=== PATIENT | male | born 1970 | race American Indian/Alaskan Native ===

== ENCOUNTER 2018-10-17 10:52 | Emergency (ER) | payer OTHER ==
[2018-10-17] MEDS ORDERED: AMIDATE IV ONE (11:05)
[2018-10-17] MEDS ORDERED: ZEMURON IV ONE (11:05)
[2018-10-17] MEDS ORDERED: VERSED IV ONE (11:05)
[2018-10-17] MEDS ORDERED: ATIVAN IV PRN (11:16)
[2018-10-17 11:31] LABS: Mean Corpuscular HGB Conc 30 % (32-34); Mean Corpuscular Volume 89 fl (84-94); Platelet Count 262 K/mm3 (140-440); Red Cell Distribution Width 16.2 % (13.2-15.2)
[2018-10-17 11:32] LABS: Hematocrit 51.8 % (35.5-45.6); Hemoglobin 15.5 gm/dl (11.8-15.2)
[2018-10-17 11:35] LABS: INR 1.07 (0.87-1.13); Partial Thromboplastin Time 33.4 Sec. (24.2-36.6)
--- NOTE | 2018-10-17 11:58 | Progress Note ---
Subjective Date of service: 10/17/18 Interval history: please see my dictated note about stroke alert and conversation with Dr. Curiel... details on the prior brain bleed will be helpful new onst of seizures may be most significant problem Objective - Laboratory Findings CBC and BMP: 10/17/18 11:00 Abnormal Lab Findings: Abnormal Labs 10/17/18 10/17/18 11:00 11:03 WBC 12.2 H RBC 5.80 H Hgb 15.5 H Hct 51.8 H MCH 27 L MCHC 30 L RDW 16.2 H POC Glucose 201 H
[2018-10-17] MEDS ORDERED: CARDENE 50 MG in NACL 0.9% 250ML 230 ML IV SCH ×2 (12:00→13:00)
[2018-10-17] MEDS ORDERED: ATIVAN 100 MG in NACL 0.9% 50 ML, VIAFLEX EMPTY CONTAINER 0 ML IV SCH (12:00)
--- NOTE | 2018-10-17 12:09 | Cat Scan Report ---
PROCEDURE: CT HEAD/BRAIN WO CON TECHNIQUE: Multiple contiguous axial images were obtained from the skull base to the vertex without administration of IV contrast. HISTORY: neuro deficits <6hrs or sx present upon awakening COMPARISONS: CT of the head performed on 06/05/2008 FINDINGS: 4.1 x 2.3 cm hemorrhage within the right temporal lobe with surrounding edema. No significant midline shift. The ventricles remain midline. The subarachnoid spaces and basilar cisterns are clear. Normal brain volume for the patient's age. No skull fracture. The paranasal sinuses and mastoid air cells a re clear. IMPRESSION: 4.1 x 2.3 cm parenchymal hemorrhage within the right temporal lobe with surrounding edema. Findings were discussed with Dr. Curiel at 12:03 PM, Eastern standard time, on 10/17/2018. This document is electronically signed by Natalya Davila MD., October 17 2018 12:06:48 PM ET
[2018-10-17 12:12] LABS: Platelet Estimate Consistent w Auto; RBC Morphology Normal; Total Cells Counted 100
[2018-10-17] MEDS ORDERED: KEPPRA PO ONE (12:25)
[2018-10-17] MEDS ORDERED: KEPPRA 1,000 MG/NS 0.75% 100ML 1,000 MG/100 ML BAG IV ONE ×2 (12:28→12:29)
--- NOTE | 2018-10-17 12:30 | XRay Report ---
PROCEDURE: XR CHEST 1V AP TECHNIQUE: Single frontal view of the chest HISTORY: S/P INTUBATION COMPARISONS: None. FINDINGS: Endotracheal tube with tip in the midtrachea. The cardiomediastinal silhouette is normal in appearance. There are low lung volumes with streaky bilateral atelectasis. No pleural effusion or pneumothorax. No acute bony or soft tissue abnormality. IMPRESSION: Endotracheal tube with tip in the midtrachea. Low lung lungs with streaky bilateral atelectasis. This document is electronically signed by Natalya Davila MD., October 17 2018 12:28:17 PM ET
[2018-10-17 12:34] LABS: BUN/Creatinine Ratio 10; Blood Urea Nitrogen 11 mg/dL (9-20); Hemolysis Index 19
--- NOTE | 2018-10-17 12:42 | Emergency Department Report ---
ED General Adult HPI - General Chief complaint: Seizure Stated complaint: SEIZURE Time Seen by Provider: 10/17/18 11:11 Source: EMS Mode of arrival: Stretcher Limitations: Other - History of Present Illness Initial comments: Patient arrived to the emergency department via EMS for seizure activity. Patient has a history of a intracranial bleed in February 2018. Patient was last seen normal the prior night before going to sleep. Upon awaking this mo rning the patient had an immediate seizure. Patient has a history of hypertension. Upon EMS arrival of the patient was no longer seizing but began to seize in route and he did get approximately 2 mg of Versed. Upon arrival of the patient is obtunded and up-to-date in his airway. Patient has no response to verbal or painful stimuli. -: Sudden Improves with: none Worsens with: none Associated Symptoms: denies other symptoms Treatments Prior to Arrival: none - Related Data Allergies Allergy/AdvReac Type Severity Reaction Status Date / Time No Known Allergies Allergy Verified 10/17/18 11:17 ED Review of Systems ROS: Stated complaint: SEIZURE Other details as noted in HPI Comment: Unobtainable due to pts medical conditions ED Past Medical Hx - Past Medical History Previous Medical History?: Yes Hx Hypertension: Yes Hx CVA: Yes - Social History Smoking Status: Unknown if ever smoked ED Physical Exam - General Limitations: Other General appearance: obtunded - Head Head exam: Present: normocephalic - Eye Eye exam: Present: other (no coronary reflex) - ENT ENT exam: Present: mucous membranes dry, other (bleeding from small laceration of the tongue) - Neck Neck exam: Present: normal inspection - Respiratory Respiratory exam: Present: respiratory distress - Cardiovascular Cardiovascular Exam: Present: normal rhythm, tachycardia - GI/Abdominal GI/Abdominal exam: Present: soft, normal bowel sounds. Absent: distended, tenderness - Extremities Exam Extremities exam: Present: normal inspection - Back Exam Back exam: Present: normal inspection - Neurological Exam Neurological exam: Present: other (patient obtunded, no gag reflex, GCS of 3) - Psychiatric Psychiatric exam: Present: other (not able to completely assess due to the patient's condition) - Skin Skin exam: Present: warm, dry, intact, normal color. Absent: rash ED Course Vital Signs 10/17/18 10/17/18 10/17/18 10:55 11:01 11:15 Pulse Rate 118 H 122 H 125 H Respiratory 25 H 26 H 24 Rate Blood Pressure O2 Sat by Pulse 97 96 92 Oximetry 10/17/18 10/17/18 10/17/18 11:47 12:00 12:10 Pulse Rate 129 H 124 H 125 H Respiratory 19 18 Rate Blood Pressure 169/94 154/86 174/124 O2 Sat by Pulse 91 98 98 Oximetry 10/17/18 10/17/18 12:15 12:31 Pulse Rate 127 H 125 H Respiratory 21 24 Rate Blood Pressure 174/124 202/121 O2 Sat by Pulse 98 92 Oximetry - Intubation Time Out Performed: Yes Sedative: Etomidate Mg Given: 20 Paralytic: Rocuronium Mg Given: 70 Laryngoscope: fiberoptic video scope Size: 3 ET Tube Size: 8 Tube Secured Depth (cm): 22 Tube Secured Location: teeth Tube Placement Confirmation: visualized tube passing t Patient Tolerated Procedure: well Intubation Complications: difficult intubation, hypoxia Additional Comments: Initially the patient was attempted with regular Jeff without video assistance to no avail Video assistance then useD Call back to the room at 11:20 AM and patient's O2 sats and decrease video- assisted is used to evaluate the at that time it is seen that the bolt at the end of the ET tube is above the epiglottic fold at this time the bowl was deflated tUBE was withdrawn and the patient was reintubated with video-assisted with good results ED Medical Decision Making - Lab Data Result diagrams: 10/17/18 11:00 10/17/18 12:06 Lab Results 10/17/18 10/17/18 10/17/18 Range/Units 11:00 11:00 11:03 WBC 12.2 H (4.5-11.0) K/mm3 RBC 5.80 H (3.65-5.03) M/mm3 Hgb 15.5 H (11.8-15.2) gm/dl Hct 51.8 H (35.5-45.6) % MCV 89 (84-94) fl MCH 27 L (28-32) pg MCHC 30 L (32-34) % RDW 16.2 H (13.2-15.2) % Plt Count 262 (140-440) K/mm3 Lymph # Bonding Machine Setter Add Manual Diff Complete Total Counted 100 Seg Neuts % (Manual) 56.0 (40.0-70.0) % Band Neutrophils % 0 % Lymphocytes % (Manual) 33.0 (13.4-35.0) % Reactive Lymphs % (Man) 4.0 % Monocytes % (Manual) 5.0 (0.0-7.3) % Eosinophils % (Manual) 1.0 (0.0-4.3) % Basophils % (Manual) 1.0 (0.0-1.8) % Metamyelocytes % 0 % Myelocytes % 0 % Promyelocytes % 0 % Blast Cells % 0 % Nucleated RBC % Not Reportable Seg Neutrophils # Man 6.8 (1.8-7.7) K/mm3 Band Neutrophils # 0.0 K/mm3 Lymphocytes # (Manual) 4.0 (1.2-5.4) K/mm3 Abs React Lymphs (Man) 0.5 K/mm3 Monocytes # (Manual) 0.6 (0.0-0.8) K/mm3 Eosinophils # (Manual) 0.1 (0.0-0.4) K/mm3 Basophils # (Manual) 0.1 (0.0-0.1) K/mm3 Metamyelocytes # 0.0 K/mm3 Myelocytes # 0.0 K/mm3 Promyelocytes # 0.0 K/mm3 Blast Cells # 0.0 K/mm3 WBC Morphology Not Reportable Hypersegmented Neuts Not Reportable Hyposegmented Neuts Not Reportable Hypogranular Neuts Not Reportable Smudge Cells Not Reportable Toxic Granulation Not Reportable Toxic Vacuolation Not Reportable Dohle Bodies Not Reportable Pelger-Huet Anomaly Not Reportable Thompson Rods Not Reportable Platelet Estimate Consistent w auto Clumped Platelets Not Reportable Plt Clumps, EDTA Not Reportable Large Platelets Not Reportable Giant Platelets Not Reportable Platelet Satelliting Not Reportable Plt Morphology Comment Not Reportable RBC Morphology Normal Dimorphic RBCs Not Reportable Polychromasia Not Reportable Hypochromasia Not Reportable Poikilocytosis Not Reportable Anisocytosis Not Reportable Microcytosis Not Reportable Macrocytosis Not Reportable Spherocytes Not Reportable Pappenheimer Bodies Not Reportable Sickle Cells Not Reportable Target Cells Not Reportable Tear Drop Cells Not Reportable Ovalocytes Not Reportable Helmet Cells Not Reportable Bell-[place] Bodies Not Reportable [place] Rings Not Reportable Guttenberg Cells Not Reportable Bite Cells Not Reportable Crenated Cell Not Reportable Elliptocytes Not Reportable Acanthocytes (Spur) Not Reportable Rouleaux Not Reportable Hemoglobin C Crystals Not Reportable Schistocytes Not Reportable Malaria parasites Not Reportable Sudhir Bodies Not Reportable Hem Pathologist Commnt No PT 14.6 (12.2-14.9) Sec. INR 1.07 (0.87-1.13) APTT 33.4 (24.2-36.6) Sec. Thrombin Time (15.1-19.6) Sec. POC ABG pH (7.35-7.45) POC ABG pCO2 (35-45) POC ABG pO2 (80-105) POC ABG HCO3 (22-26 mml/L) POC ABG Total CO2 (23-27mmol/L) POC ABG O2 Sat POC ABG Base Excess ((-2) - (+3)mmol/L) FiO2 % Sodium (137-145) mmol/L Potassium (3.6-5.0) mmol/L Chloride (98-107) mmol/L Carbon Dioxide (22-30) mmol/L Anion Gap mmol/L BUN (9-20) mg/dL Creatinine (0.8-1.5) mg/dL Estimated GFR ml/min BUN/Creatinine Ratio % Glucose (75-100) mg/dL POC Glucose 201 H (70-105) Calcium (8.4-10.2) mg/dL Troponin T (0.00-0.029) ng/mL 10/17/18 10/17/18 10/17/18 Range/Units 11:20 12:06 12:40 WBC (4.5-11.0) K/mm3 RBC (3.65-5.03) M/mm3 Hgb (11.8-15.2) gm/dl Hct (35.5-45.6) % MCV (84-94) fl MCH (28-32) pg MCHC (32-34) % RDW (13.2-15.2) % Plt Count (140-440) K/mm3 Lymph # Add Manual Diff Total Counted Seg Neuts % (Manual) (40.0-70.0) % Band Neutrophils % % Lymphocytes % (Manual) (13.4-35.0) % Reactive Lymphs % (Man) % Monocytes % (Manual) (0.0-7.3) % Eosinophils % (Manual) (0.0-4.3) % Basophils % (Manual) (0.0-1.8) % Metamyelocytes % % Myelocytes % % Promyelocytes % % Blast Cells % % Nucleated RBC % Seg Neutrophils # Man (1.8-7.7) K/mm3 Band Neutrophils # K/mm3 Lymphocytes # (Manual) (1.2-5.4) K/mm3 Abs React Lymphs (Man) K/mm3 Monocytes # (Manual) (0.0-0.8) K/mm3 Eosinophils # (Manual) (0.0-0.4) K/mm3 Basophils # (Manual) (0.0-0.1) K/mm3 Metamyelocytes # K/mm3 Myelocytes # K/mm3 Promyelocytes # K/mm3 Blast Cells # K/mm3 WBC Morphology Hypersegmented Neuts Hyposegmented Neuts Hypogranular Neuts Smudge Cells Toxic Granulation Toxic Vacuolation Dohle Bodies Pelger-Huet Anomaly Thompson Rods Platelet Estimate Clumped Platelets Plt Clumps, EDTA Large Platelets Giant Platelets Platelet Satelliting Plt Morphology Comment RBC Morphology Dimorphic RBCs Polychromasia Hypochromasia Poikilocytosis Anisocytosis Microcytosis Macrocytosis Spherocytes Pappenheimer Bodies Sickle Cells Target Cells Tear Drop Cells Ovalocytes Helmet Cells Bell-[place] Bodies [place] Rings Guttenberg Cells Bite Cells Crenated Cell Elliptocytes Acanthocytes (Spur) Rouleaux Hemoglobin C Crystals Schistocytes Malaria parasites Sudhir Bodies Hem Pathologist Commnt PT (12.2-14.9) Sec. INR (0.87-1.13) APTT (24.2-36.6) Sec. Thrombin Time 18.1 (15.1-19.6) Sec. POC ABG pH 7.142 L (7.35-7.45) POC ABG pCO2 65.3 H (35-45) POC ABG pO2 141 H (80-105) POC ABG HCO3 22.3 (22-26 mml/L) POC ABG Total CO2 24 (23-27mmol/L) POC ABG O2 Sat 98 POC ABG Base Excess -7 ((-2) - (+3)mmol/L) FiO2 100 % Sodium 144 (137-145) mmol/L Potassium 4.4 (3.6-5.0) mmol/L Chloride 98.5 (98-107) mmol/L Carbon Dioxide 12 L (22-30) mmol/L Anion Gap 38 mmol/L BUN 11 (9-20) mg/dL Creatinine 1.1 (0.8-1.5) mg/dL Estimated GFR > 60 ml/min BUN/Creatinine Ratio 10 % Glucose 231 H (75-100) mg/dL POC Glucose (70-105) Calcium 10.0 (8.4-10.2) mg/dL Troponin T < 0.010 (0.00-0.029) ng/mL - Radiology Data Radiology results: report reviewed - Medical Decision Making Initially the patient was given 5 mg of Versed approximately 15 minutes prior to his arrival On arrival the patient did not have a valdo reflex Head and GCS of 3 Patient was immediately intubated Discussed results with the patient's family Spoke to Dr. Bob at [facility] who requested 2g of keppra and to keep SBP at 160mmhg Critical Care Time: Yes Critical care time in (mins) excluding proc time.: 35 Critical care attestation.: If time is entered above; I have spent that time in minutes in the direct care of this critically ill patient, excluding procedure time. ED Disposition Clinical Impression: Intracranial hemorrhage Disposition: [id number]/[place]-70 ANOTHER TYPE HLTHCARE Is pt being admited?: No Does the pt Need Aspirin: No Condition: Critical Referrals: LENIN CABRALESBURNSIDE MD JAZMIN [Primary Care Provider] - 3-5 Days
[2018-10-17] MEDS ORDERED: D5W IV SCH (13:00)
[2018-10-17] MEDS ORDERED: KEPPRA IV SCH (13:00)
[2018-10-17] MEDS ORDERED: SUBLIMAZE IV PRN (13:16)
[2018-10-17 13:44] VITALS: BP 122/74
[2018-10-17] MEDS ORDERED: fentaNYL DRIP Premix 2,000 MCG/100 ML BAG IV SCH (14:00)
--- NOTE | 2018-10-17 19:32 | Consultation ---
HISTORY OF PRESENT ILLNESS: This is a 48-year-old black male that presents to the Emergency Room, spoke with Dr. Curiel, ED physician, stroke alert. The patient presented to the Emergency Room after having had at least 2 generalized seizures. The history we have is very limited, but what we understand he was recently discharged from the hospital and was known to have an intracranial hemorrhage in the right temporal lobe due to hypertension. The interval between discharge and the current event is not clear at this point. I mentioned to Dr. Curiel we will need to get further details about this. I have reviewed his CT scan, he has about a 2 x 3 cm hemorrhage, which is not associated with any edema in the mid portion of the right temporal lobe. There is no midline shift. There is no evidence of herniation. There is no evidence of fresh blood. This has the appearance at least of a chronic hemorrhage with a very clear delineated, it is around it, that does not contain any acute edema or any mass effect. The remainder of the CT scan is unremarkable. PHYSICAL EXAMINATION: The patient reveals he has been intubated and is postictal and detailed examination obviously cannot be done. He has limited movement of his extremities. He is not responsive, have not received medication for control of his seizures. He is currently postictal. RECOMMENDATION: At this point is to get a further detailed history about outside events. This could be simply an old stable intracranial hypertensive right temporal lobe hemorrhage due to hypertension and everything is stable, nonetheless we would check a coagulation profile, load him with anticonvulsants. Obtain a history from the other facility the patient was in and may require making a phone call to the Neurosurgery service computer operations manager. He may require transfer if his condition does not promptly resolve and also if images can be reviewed from outside sources as to what the discharge CT appeared to be, if there 3has been any obviously marked increase in the size of the swelling he will need to go to [facility]. JOB# [id number] BRYAN/LAMAR
--- NOTE | 2018-10-18 08:07 | Progress Note ---
Subjective Date of service: 10/18/18 Interval history: EEG ordered and further addressing the BP VENT ISSUES DETAILED OLD HX TO BE REVIEWED Objective - Laboratory Findings CBC and BMP: 10/17/18 11:00 10/17/18 12:06 Abnormal Lab Findings: Abnormal Labs 10/17/18 10/17/18 10/17/18 11:00 11:03 12:06 WBC 12.2 H RBC 5.80 H Hgb 15.5 H Hct 51.8 H MCH 27 L MCHC 30 L RDW 16.2 H POC ABG pH POC ABG pCO2 POC ABG pO2 Carbon Dioxide 12 L Glucose 231 H POC Glucose 201 H 10/17/18 12:40 WBC RBC Hgb Hct MCH MCHC RDW POC ABG pH 7.142 L POC ABG pCO2 65.3 H POC ABG pO2 141 H Carbon Dioxide Glucose POC Glucose
== END 2018-10-17 14:19 | disposition other institution (70) ==
LOC: ED 10:52
DX: I62.9 Nontraumatic intracranial hemorrhage, unspecified (principal); I10 Essential (primary) hypertension; Z86.73 Personal history of transient ischemic attack (TIA), and cerebral infarction without residual deficits
CPT/HCPCS: 31500; 36415; 70450; 71045; 80048; 82803; 82962; 84484; 85007; 85025; 85610; 85670; 85730; 93005; 93010; 96365; 96367; 96368; 99291; J1953; J2060; J2250; J3010; J7050; 94002